=== PATIENT | male | born 1970 | race Caucasian/White ===

== ENCOUNTER → 2018-01-12 | Outpatient (CLI) | payer OTHER ==
--- NOTE | 2018-01-12 15:11 | MRI ---
EXAM DESCRIPTION: Lumbar Spine w/o Contrast : Magnetic Resonance Imaging. CLINICAL HISTORY: RADICULOPATHY COMPARISON: LUMBAR TECHNIQUE: Multiplanar, multiple standard sequences, non contrast MRI, lumbar spine. FINDINGS: L5-S1: Disc desiccation and minimal disc space loss posterior. Left posterior paracentral 7 mm disc herniation impressing on the thecal sac and displacing the descending left S1 nerve slightly from the lateral recess. Slight inferior extrusion of the disc. Canal nearly stenotic to the left of midline. No subarticular recess stenosis. Disc bulge into the left foramen abutting the exiting left L5 nerve with moderate narrowing. Mild narrowing of the right foramen. Posterior elements unremarkable. L4-5: Disc desiccation with tiny anterior bulge. Posterior disc space minimally narrowed. Bilateral disc bulge into the foraminal base more on the left than the right. Minimal narrowing of the left subarticular recess. Mild narrowing bilaterally, with the disc abutting the exiting left L4 nerve. L3-4: Normal signal in the disc and disc space preserved with no bulging. Minimal hypertrophy of the flavum ligaments. Canal and foramina patent. L2-3: Normal signal in the disc and disc space preserved with no bulging. Posterior elements unremarkable. Canal and foramina are patent. L1-2: Normal signal in the disc and disc space preserved. Posterior elements are unremarkable. Canal and foramina are patent. T12-L1: Minimal narrowing of the anterior disc space and loss of T2 signal in the anterior disc. Posterior disc is unremarkable. Posterior elements negative. Canal and foramina are patent. Conus terminates at this level. L2-L4 levoscoliosis. Upper spine is slightly kyphotic. Bilateral cysts in the kidneys. Paravertebral soft tissues negative.. Normal marrow signal in the remaining vertebral bodies and the posterior elements. Vertebral bodies are not compressed at any level. IMPRESSION: 1. Left paracentral L5-S1 disc protrusion with inferior extrusion, impinging the descending left S1 nerve at the subarticular recess. Canal nearly stenotic. Disc bulge into the left foramen abutting the exiting left L5 nerve. 2. Bilateral bulging of the L4-5 disc into the foramina more on the left and abutting the exiting left L4 nerve. Correlate for left L4 radiculopathy. 3. Early spondylosis and disc degeneration and anterior T12-L1. Electronically signed by: Theodore Jimenez MD 01/12/2018 3:10 PM CDT
== END ==
LOC: MRI 08:45
PROVIDERS: ATTEND Nurse Practitioner Family
DX: M54.16 Radiculopathy, lumbar region (principal); M51.26 Other intervertebral disc displacement, lumbar region; M51.27 Other intervertebral disc displacement, lumbosacral region